=== PATIENT | female | born 2000 | race African-American/Black ===

== ENCOUNTER 2024-05-18 21:45 | Emergency (ER) | payer OTHER ==
[2024-05-18 21:59] VITALS: BP 122/67; PULSE 83; RESP 16; TEMP 98.8; BMI 23.4
[2024-05-18 22:24] LABS: EPI CELLS 12 /uL (0-25.1); HYALINE CASTS 1 /uL (0-3.1); URINE APPEARANCE CLOUDY; URINE BACTERIA 6352 /uL (0-1359); URINE BILIRUBIN NEGATIVE (NEGATIVE); URINE COLOR YELLOW; URINE GLUCOSE (UA) NEGATIVE (NEGATIVE); URINE KETONE 2+ (NEGATIVE); URINE LEUK ESTERASE 2+ (NEGATIVE); URINE NITRITE NEGATIVE (NEGATIVE); URINE PROTEIN 2+ (NEGATIVE); URINE RBC 706 /uL (0-23.9); URINE WBC 1306 /uL (0-25.8)
[2024-05-18] MEDS ORDERED: CEPHALEXIN MONOHYDRATE 500 MG CAPSULE (UD) ONE (22:48)
[2024-05-18] MEDS: SODIUM CHLORIDE 0.9% 500 ML INFUS.BAG IV ONE (23:02)
[2024-05-18] MEDS: CEPHALEXIN MONOHYDRATE 500 MG CAPSULE (UD) PO ONE (23:02)
[2024-05-18] MEDS: CEPHALEXIN 250 MG/5 ML ORAL SUSPENSION PO ONE (23:03)
[2024-05-18 23:17] LABS: HCG,QUALITATIVE URINE Negative
[2024-05-19 00:19] LABS: HIV INTERPRETATION NEGATIVE (NEGATIVE)
== END 2024-05-18 23:29 | disposition home or self-care (01) ==
LOC: JER 21:45
DX: N30.00 Acute cystitis without hematuria (principal); R39.15 Urgency of urination
CPT/HCPCS: 36415; 81003; 84703; 87086; 87186; 87389; 87491; 87591; 99283-25

== ENCOUNTER 2024-09-07 20:42 | Observation (INO) | payer OTHER ==
[2024-09-07 20:48] VITALS: RESP 18; BMI 24.5
[2024-09-07 22:36] LABS: EPI CELLS 7 /uL (0-25.1); HYALINE CASTS 1 /uL (0-3.1); PH,URINE 7.5 (5.0-8.0); URINE APPEARANCE CLEAR; URINE BACTERIA >9,000 /uL (0-1359); URINE BILIRUBIN NEGATIVE (NEGATIVE); URINE COLOR YELLOW; URINE GLUCOSE (UA) NEGATIVE (NEGATIVE); URINE KETONE NEGATIVE (NEGATIVE); URINE LEUK ESTERASE 2+ (NEGATIVE); URINE NITRITE NEGATIVE (NEGATIVE); URINE PROTEIN NEGATIVE (NEGATIVE); URINE RBC 12 /uL (0-23.9); URINE UROBILINOGEN 0.2 mg/dL (0.2-1.0); URINE WBC 176 /uL (0-25.8)
[2024-09-07 22:37] LABS: HCG,QUALITATIVE URINE Negative
[2024-09-07] MEDS ORDERED: KETOROLAC TROMETHAMINE 30 MG/1 ML VIAL ONE (22:50)
[2024-09-07] MEDS ORDERED: ONDANSETRON 4 MG/2 ML VIAL ONE (22:50)
[2024-09-07 22:53] LABS: BASO % 0.4 % (0-2.0); EOS % 0.8 % (0-4.5); HEMATOCRIT 37.1 % (32.4-45.2); LYMPH % 36.5 % (8-40); MCH 26.1 pg (25.7-33.7); MCHC 32.3 g/dl (32.0-36.0); MEAN CELL VOLUME 80.8 fl (80-96); MEAN PLT VOLUME 7.8 fl (7.5-11.1); MONO % 8.2 % (3.8-10.2); NEUT % 54.1 % (42.8-82.8); PLATELET COUNT 314 10^3/uL (134-434); RBC 4.59 M/mm3 (3.60-5.2); RDW 17.6 % (11.6-15.6)
[2024-09-07] MEDS: KETOROLAC TROMETHAMINE 30 MG/1 ML VIAL IVPUSH ONE (22:57)
[2024-09-07] MEDS: ONDANSETRON 4 MG/2 ML VIAL IVPUSH ONE (22:57)
[2024-09-08] LABS: POTASSIUM 4.1 mmol/L (3.5-5.1)
[2024-09-08 00:03] LABS: ALBUMIN 3.2 g/dl (3.4-5.0); BLOOD UREA NITROGEN 9.9 mg/dL (7-18); CALCIUM 9.6 mg/dL (8.5-10.1)
[2024-09-08 00:07] LABS: BILIRUBIN,TOTAL 0.3 mg/dL (0.2-1); CREATININE 0.7 mg/dL (0.55-1.3); TOT PROT 7.9 g/dl (6.4-8.2)
[2024-09-08] MEDS ORDERED: cefTRIAXone SODIUM 1 GM VIAL ONE (00:16)
[2024-09-08] MEDS: CEFTRIAXONE 1 GM in DEXTROSE 5%-WATER - 100 ML IVPB ONE ×2 (00:20→00:41)
[2024-09-08] MEDS ORDERED: PIPERACILLIN/TAZOB 4.5 GM 4.5 GM/100 ML BAG IVPB ONE (04:12)
[2024-09-08] MEDS: PIPERACILLIN/TAZOB 4.5 GM 4.5 GM in DEXTROSE 5%-WATER 100 ML IVPB ONE (04:20)
[2024-09-08 07:45] VITALS: TEMP 98.6
[2024-09-08] MEDS ORDERED: KETOROLAC TROMETHAMINE 15 MG/ML VIAL IVPUSH PRN (08:10)
[2024-09-08] MEDS ORDERED: ACETAMINOPHEN 325 MG TABLET (FP) PO PRN (10:57)
[2024-09-08 12:19] VITALS: BP 102/69; PULSE 74
[2024-09-08] MEDS: POLYETHYLENE GLYCOL (HEALTHYLAX) 3350 17 GM PACKET PO SCH (13:18)
[2024-09-08] MEDS ORDERED: CEFTRIAXONE 1 G/50 ML PREMIX 50 ML IVPB SCH (22:00)
== END 2024-09-08 13:31 | disposition home or self-care (01) ==
LOC: JERFT 20:42 → JERBED 09-08 05:08 → UNDOADMOB 09-08 05:08 → OBSVTOIN 09-08 07:29 → INTOOBSV 09-08 07:29 → J6S 09-08 08:30 → JERBED 09-08 08:30 → J6S 09-08 10:32 → JERBED 09-08 10:32 → J6S 09-08 12:50
PROVIDERS: ADMIT Internal Medicine; ATTEND Internal Medicine
PROC: 3E03329 Introduction of Other Anti-infective into Peripheral Vein, Percutaneous Approach (ICD-10-PCS; principal; 2024-09-08)
PROC: 3E0333Z Introduction of Anti-inflammatory into Peripheral Vein, Percutaneous Approach (ICD-10-PCS; 2024-09-08)
PROC: 3E033GC Introduction of Other Therapeutic Substance into Peripheral Vein, Percutaneous Approach (ICD-10-PCS; 2024-09-08)
DX: N39.0 Urinary tract infection, site not specified (principal); K59.00 Constipation, unspecified
CPT/HCPCS: 36415; 71046-TC-FY; 74177-TC; 80053; 81003; 82550; 84484; 84703; 85025; 87086; 87186; 93005; 93010; 96365; 96367; 96375; 99285-25; G0378